=== PATIENT | male | born 1980 | race Caucasian/White ===

== ENCOUNTER 2024-04-05 09:07 | Outpatient (CLI) | payer OTHER ==
--- NOTE | 2024-04-07 07:21 | MRI Report ---
PROCEDURE: Brain WO INDICATIONS: MIGRAINE TECHNIQUE: Noncontrast axial T1 spin echo, axial T2 fast spin echo, sagittal and axial FLAIR, coronal T2 fast sp in echo, axial gradient echo, axial diffusion and ADC through the brain. COMPARISON: None. FINDINGS: Image quality: Excellent. CSF Spaces: Basal cisterns are patent. No extra-axial fluid collections. Ventricles are normal in size and shape. Brain: No intracranial masses or hemorrhage. Bhatia/white matter interface is normal. Brainstem appe ars normal. Diffusion-weighted images demonstrate no acute ischemic insult. No chronic ischemic ins ults. Normal intravascular flow voids are present. Skull and face: Calvarium has normal marrow signal. Orbits appear normal. Sinuses: Scattered ethmoid sinus mucosal thickening. There is mucosal thickening of the left maxillar y sinus. Remainder the visualized paranasal sinuses are clear. The mastoids are clear. IMPRESSION: MRI brain without acute intracranial abnormalities. No evidence for mass or mass effect. Scattered ethmoid and left maxillary sinus disease. Reviewed by: Chaka Guerrero MD on 04/07/2024 7:20 AM PDT Approved by: Chaka Guerrero MD on 04/07/2024 7:20 AM PDT Station ID: [id number]
== END 2024-04-05 09:08 | disposition home or self-care (01) ==
LOC: DI 09:07
PROVIDERS: ATTEND Student in an Organized Health Care Education/Training Program
DX: G43.909 Migraine, unspecified, not intractable, without status migrainosus (principal); J32.2 Chronic ethmoidal sinusitis; J32.0 Chronic maxillary sinusitis